=== PATIENT | male | born 1960 | race Caucasian/White ===

== ENCOUNTER → 2023-04-04 13:11 | Outpatient (CLI) | payer BC, SELFPAY ==
--- NOTE | 2023-04-04 11:15 | DI.RAD_ITS ---
Exam(s) XR ANKLE RT COMPLETE XR HEEL RT OS CALCIS EXAM: XR ANKLE RT COMPLETE and XR heel RT os calcis CLINICAL HISTORY: fall, heel injury M79.671 PAIN RT FOOT. TECHNIQUE: 2D digital imaging was performed of the right heel and ankle. Five images were obtained. AP, lateral and oblique views were obtained. COMPARISON: CR XR HEEL RT OS CALCIS from 04/04/2023 FINDINGS: BONES: No acute fracture is present. No bony destructive lesion is seen. There is a chronic well cor ticated osseous density adjacent to the posterior malleolus on the lateral view. There is also a wel l corticated osseous density on the dorsal aspect adjacent to the talonavicular joint on the lateral view. There is a small enthesophyte at the Achilles insertion site on the calcaneus. JOINTS: The ankle mortise is normally aligned. SOFT TISSUE: Normal. IMPRESSION: No acute fracture or dislocation. DATA REPOSITORY: RADIATION DOSE DELIVERED:
== END ==
PROVIDERS: PCP Family Medicine; Visit Provider Physician Assistant
DX: M79.671 Pain in right foot (principal)
CPT/HCPCS: 73610; 73650